=== PATIENT | male | born 1990 | race Asian ===

== ENCOUNTER 2021-10-30 20:49 | Emergency (ER) | payer MEDICAID, OTHER ==
[~2021-10-30] VITALS: Ht 172.7 cm; Wt 49.9 kg
[2021-10-30 20:49] VITALS: BP 92/46
--- NOTE | 2021-10-30 20:49 | NUR ---
PT BROUGHT TO BED 4 VIA [facility]
--- NOTE | 2021-10-30 21:11 | NUR ---
ERMD AT BEDSIDE
[2021-10-30] MEDS ORDERED: NACL 0.9% 1,000 ML IV ONE (21:20)
[2021-10-30 22:40] LABS: ANION GAP 11.5 (8-16); CREATININE 0.8 mg/dL (0.6-1.3); POTASSIUM 3.5 mmol/L (3.5-5.1); TOTAL BILIRUBIN 0.2 mg/dL (0.0-1.0)
[2021-10-30 22:44] LABS: HEMATOCRIT 27.5 % (36-52); HEMOGLOBIN 8.4 g/dL (12.0-18.0); MEAN CORPUSCULAR HEMOGLOBIN 19 pg (27-31); MEAN CORPUSCULAR HGB CONC 31 g/dL (33-37); MEAN CORPUSCULAR VOLUME 60.9 fL (80-94); PLATELET COUNT (AUTO) 536 K/uL (140-450); RED BLOOD CELL COUNT(AUTO) 4.52 MIL/uL (4.20-6.10); RED CELL DISTRIBUTION WIDTH 18.6 % (11.6-13.7); WHITE BLOOD COUNT (AUTO) 8.1 K/uL (4.8-10.8)
[2021-10-30 23:14] LABS: EOSINOPHILS % (MANUAL) 1 % (0-4); LYMPHOCYTES % (MANUAL) 7 % (20-46); MONOCYTES % (MANUAL) 5 % (5-12)
--- NOTE | 2021-10-31 00:05 | NUR ---
UP TO BATHROOM GAIT STEADY NAD NOTED
--- NOTE | 2021-10-31 01:00 | NUR ---
ORTHOSTATIC LAYING 99/38 106 SITTITNG 108/69 102 STANDING 108/62 107
--- NOTE | 2021-10-31 01:19 | NUR ---
ERMD AT BEDSIDE
--- NOTE | 2021-10-31 01:30 | NUR ---
D/C WITH VERBAL AND WRITTEN ACI.
--- NOTE | 2021-10-31 01:33 | NUR ---
Patient discharged with v/s stable. Written and verbal after care instructions given and explained. Patient verbalized understanding. Ambulatory with steady gait. All questions addressed prior to discharge. SL DC SECURED WITH TAPE AND GAUZE. Advised to follow up with PMD.
[2021-10-31 01:34] VITALS: BP 108/62
== END 2021-10-31 01:30 | disposition home or self-care (01) ==
LOC: MED 20:49
DX: R55 Syncope and collapse (principal); E86.0 Dehydration; D64.9 Anemia, unspecified; F12.10 Cannabis abuse, uncomplicated; I95.89 Other hypotension
CPT/HCPCS: 36415; 80053; 84484; 85025; 86886; 86900; 86901; 93005; 96360; 99285; J7030